=== PATIENT | female | born 1990 | race African-American/Black ===

== ENCOUNTER 2018-10-05 04:24 | Emergency (ER) | payer OTHER ==
[~2018-10-05] VITALS: Ht 160 cm; Wt 90.9 kg
[2018-10-05 05:11] LABS: APPEARANCE,URINE CLOUDY (CLEAR); BILIRUBIN,URINE NEGATIVE (NEGATIVE); GLUCOSE, URINE (UA) NEGATIVE (NEGATIVE); KETONES,URINE NEGATIVE (NEGATIVE); LEUKOCYTE ESTERASE ,URINE NEGATIVE (NEGATIVE); NITRATE,URINE NEGATIVE (NEGATIVE); OCCULT BLOOD,URINE NEGATIVE (NEGATIVE); PROTEIN,URINE NEGATIVE (NEGATIVE); UROBILINOGEN,URINE 0.2 mg/dL (<=1.0)
[2018-10-05 05:15] LABS: AMPHET/METH SCREEN,URINE POSITIVE (NEGATIVE); BARBITURATE SCREEN, URINE NEGATIVE (NEGATIVE); BENZODIAZEPINES SCREEN,URINE NEGATIVE (NEGATIVE); CANNABINOID SCREEN,URINE POSITIVE (NEGATIVE); COCAINE SCREEN,URINE NEGATIVE (NEGATIVE); METHADONE SCREEN, URINE NEGATIVE (NEGATIVE); OPIATE SCREEN,URINE NEGATIVE (NEGATIVE)
[2018-10-05 05:16] LABS: PHENCYCLIDINE SCREEN,URINE NEGATIVE (NEGATIVE)
[2018-10-05] MEDS ORDERED: SODIUM CHLORIDE 0.9% 1,000 ML IV ONE (05:18)
[2018-10-05] MEDS: ONDANSETRON HCL 4 MG/2 ML VIAL IVP ONE ×2 (05:22→05:27)
[2018-10-05 05:25] LABS: BASOPHILS % (AUTO) 0.4 % (0.0-2.0); EOSINOPHILS % (AUTO) 4.6 % (1.0-6.0); HEMATOCRIT 33.3 % (36-46); HEMOGLOBIN 11.1 g/dL (12.0-16.0); LYMPHOCYTES % (AUTO) 25.9 % (22.0-44.0); MEAN CORPUSCULAR HEMOGLOBIN 26.6 pg (26.0-34.0); MEAN CORPUSCULAR HGB CONC 33.3 G/dL (31.0-37.0); MEAN CORPUSCULAR VOLUME 80 fL (80-100); MONOCYTES # (AUTO) 0.6 K/uL (0.1-1.0); MONOCYTES % (AUTO) 8.5 % (2.0-9.0); NEUTROPHILS # (AUTO) 4.6 K/uL (1.8-7.7); NEUTROPHILS % (AUTO) 60.6 % (40.0-70.0); PLATELET COUNT (AUTO) 268 K/uL (150-450); RED BLOOD CELL COUNT(AUTO) 4.16 MIL/uL (4.00-5.20); RED CELL DISTRIBUTION WIDTH 14.3 % (11.5-14.5)
[2018-10-05 05:31] LABS: ANION GAP 8 mmol/L (8-16); CARBON DIOXIDE 25 mmol/L (22-29); CHLORIDE 102 mmol/L (98-107); CREATININE 0.76 mg/dL (0.60-1.30); GLOMERULAR FILTR. RATE CALC > 60 mL/min (>60); GLUCOSE,RANDOM 88 mg/dL (70-110); POTASSIUM 3.6 mmol/L (3.5-5.1); SODIUM SERUM 135 mmol/L (136-145); UREA NITROGEN, BLOOD 7 mg/dL (7-18)
[2018-10-05 05:59] LABS: ALANINE AMINOTRANSFERASE 18 U/L (12-78); ALBUMIN 2.8 g/dL (3.4-5.0); ALKALINE PHOSPHATASE 60 U/L (46-116); ASPARTATE AMINOTRANSFERASE 15 U/L (15-37); BILIRUBIN,TOTAL 0.2 mg/dL (0.1-1.0); HCG,QUANTITATIVE 10970 mIU/mL (0-6); LIPASE 147 U/L (73-393); TOTAL PROTEIN, SERUM 7.1 g/dL (6.4-8.2)
[2018-10-05 06:55] VITALS: BP 137/78
== END 2018-10-05 07:04 | disposition home or self-care (01) ==
LOC: EMS 04:24
DX: O99.612 Diseases of the digestive system complicating pregnancy, second trimester (principal); K52.9 Noninfective gastroenteritis and colitis, unspecified; O99.332 Smoking (tobacco) complicating pregnancy, second trimester; O26.892 Other specified pregnancy related conditions, second trimester; F12.90 Cannabis use, unspecified, uncomplicated; Z3A.16 16 weeks gestation of pregnancy
CPT/HCPCS: 36415; 76805; 80053; 80307; 81003; 83690; 84702; 85025; 96374; 99284; 99406; J2405; J7030

== ENCOUNTER 2021-10-19 16:20 | Emergency (ER) | payer MEDICAID, OTHER ==
[~2021-10-19] VITALS: Ht 160 cm; Wt 95.5 kg
[2021-10-19 17:10] LABS: APPEARANCE,URINE TURBID (CLEAR); BILIRUBIN,URINE NEGATIVE (NEGATIVE); GLUCOSE, URINE (UA) NEGATIVE (NEGATIVE); KETONES,URINE NEGATIVE (NEGATIVE); LEUKOCYTE ESTERASE ,URINE SMALL (NEGATIVE); NITRATE,URINE NEGATIVE (NEGATIVE); OCCULT BLOOD,URINE LARGE (NEGATIVE); PH,URINE 6.5 (5.0-8.0); PROTEIN,URINE >600,SEE CONFIRM mg/dL (NEGATIVE); SPECIFIC GRAVITIY, URINE 1.033 (1.003-1.030); UROBILINOGEN,URINE <=1.0 mg/dL (<=1.0)
[2021-10-19 17:19] LABS: BACTERIA,URINE Rare /HPF (None Seen); RBC,URINE Full Field /HPF (0-2); SQUAMOUS EPITHELIAL CELL,UR Few /LPF (None Seen); WBC,URINE 0-2 /HPF (0-5)
[2021-10-19 17:23] LABS: SULFOSALICYLIC ACID,URINE 4+ (Negative)
[2021-10-19] MEDS ORDERED: HydrALAZINE HCL 20 MG/ML VIAL IVP ONE ×2 (17:45→18:15)
[2021-10-19 18:06] LABS: BASOPHILS % (AUTO) 0.6 % (0.0-2.0); EOSINOPHILS % (AUTO) 0.5 % (1.0-6.0); HEMATOCRIT 38.4 % (36-46); HEMOGLOBIN 12.9 g/dL (12.0-16.0); LYMPHOCYTES # (AUTO) 1.6 K/uL (1.0-4.8); LYMPHOCYTES % (AUTO) 23.4 % (22.0-44.0); MEAN CORPUSCULAR HGB CONC 33.5 G/dL (31.0-37.0); MEAN CORPUSCULAR VOLUME 81 fL (80-100); MONOCYTES # (AUTO) 0.6 K/uL (0.1-1.0); MONOCYTES % (AUTO) 8.9 % (2.0-9.0); NEUTROPHILS # (AUTO) 4.7 K/uL (1.8-7.7); NEUTROPHILS % (AUTO) 66.6 % (40.0-70.0); PLATELET COUNT (AUTO) 134 K/uL (150-450); RED BLOOD CELL COUNT(AUTO) 4.77 MIL/uL (4.00-5.20); RED CELL DISTRIBUTION WIDTH 15.1 % (11.5-14.5)
[2021-10-19 18:09] LABS: ANION GAP 3 mmol/L (8-16); CARBON DIOXIDE 28 mmol/L (22-29); CHLORIDE 103 mmol/L (98-107); CREATININE 1.06 mg/dL (0.60-1.30); GLOMERULAR FILTR. RATE CALC > 60 mL/min (>60); GLUCOSE,RANDOM 91 mg/dL (70-110); POTASSIUM 4.7 mmol/L (3.5-5.1); SODIUM SERUM 134 mmol/L (136-145); UREA NITROGEN, BLOOD 18 mg/dL (7-18)
[2021-10-19] MEDS ORDERED: LABETALOL HCL 5 MG/ML 20 ML VIAL IVP ONE ×2 (18:30→19:15)
[2021-10-19 18:36] LABS: ALANINE AMINOTRANSFERASE 17 U/L (12-78); ALKALINE PHOSPHATASE 122 U/L (46-116); ASPARTATE AMINOTRANSFERASE 25 U/L (15-37); BILIRUBIN,TOTAL 0.3 mg/dL (0.1-1.0); HCG,QUANTITATIVE 21803 mIU/mL (0-6); LACTATE DEHYDROGENASE 321 U/L (81-234); TOTAL PROTEIN, SERUM 6.2 g/dL (6.4-8.2)
[2021-10-19 18:41] LABS: B-TYPE NATRIURETIC PEPTIDE 69 pg/mL (0-100)
[2021-10-19 18:46] LABS: URIC ACID 6.3 mg/dL (2.6-7.2)
[2021-10-19 19:16] VITALS: BP 192/122
== END 2021-10-19 19:20 | disposition short-term general hospital (02) ==
LOC: EMS 16:33
DX: O14.92 Unspecified pre-eclampsia, second trimester (principal); Z3A.26 26 weeks gestation of pregnancy; F12.90 Cannabis use, unspecified, uncomplicated; F17.210 Nicotine dependence, cigarettes, uncomplicated; Z79.899 Other long term (current) drug therapy
CPT/HCPCS: 36415; 76805; 76817; 80053; 81001; 83615; 83880; 84484; 84550; 84702; 84703; 85025; 93005; 96374; 96375; 96376; 99291; G0480; J0360; J3490; 81002

== ENCOUNTER 2023-01-18 18:42 | Emergency (ER) | payer MEDICAID, OTHER ==
[~2023-01-18] VITALS: Ht 162.6 cm; Wt 108.2 kg
[2023-01-18] MEDS ORDERED: AMLO10TA55 PO (18:53)
[2023-01-18] MEDS ORDERED: CHLO25TA3 PO (18:53)
[2023-01-18] MEDS ORDERED: CARV25TA32 PO (18:53)
[2023-01-18] MEDS ORDERED: ISOS20TA85 PO (18:54)
[2023-01-18 18:57] VITALS: BP 138/77; PULSE 84; RESP 18; TEMP 98.1
[2023-01-18] MEDS ORDERED: LIDOCAINE 1% 10 ML VIAL SQ ONE (19:00)
[2023-01-18] MEDS ORDERED: CEPH-558 PO (19:48)
[2023-01-18] MEDS ORDERED: IBUP-1554 PO (19:48)
[2023-01-18] MEDS ORDERED: DOXY-354 PO (19:48)
== END 2023-01-18 19:51 | disposition home or self-care (01) ==
LOC: EMS 18:42
DX: L02.212 Cutaneous abscess of back [any part, except buttock and flank] (principal); I10 Essential (primary) hypertension; F17.210 Nicotine dependence, cigarettes, uncomplicated; F12.90 Cannabis use, unspecified, uncomplicated; Z98.51 Tubal ligation status; Z98.890 Other specified postprocedural states
CPT/HCPCS: 99283; 10060; J3490

== ENCOUNTER 2023-01-20 15:10 | Emergency (ER) | payer OTHER ==
[~2023-01-20] VITALS: Ht 162.6 cm; Wt 108.2 kg
[~2023-01-20 15:10] MED LIST: AMLO10TA55 PO; CARV25TA32 PO; CEPH-558 PO; CHLO25TA3 PO; DOXY-354 PO; IBUP-1554 PO; ISOS20TA85 PO
[2023-01-20 15:25] VITALS: BP 119/73; PULSE 80; RESP 18; TEMP 97.8
== END 2023-01-20 16:52 | disposition left against medical advice (07) ==
LOC: EMS 15:30
DX: Z53.21 Procedure and treatment not carried out due to patient leaving prior to being seen by health care provider (principal)
CPT/HCPCS: 99281; Z7502

== ENCOUNTER 2023-01-22 14:35 | Emergency (ER) | payer OTHER ==
[~2023-01-22] VITALS: Ht 162.6 cm; Wt 104.5 kg
[2023-01-22 16:18] VITALS: BP 134/89; PULSE 91; RESP 16; TEMP 98.6
== END 2023-01-22 16:50 | disposition home or self-care (01) ==
LOC: EMS 14:37
DX: S30.91XD Unspecified superficial injury of lower back and pelvis, subsequent encounter (principal); L02.212 Cutaneous abscess of back [any part, except buttock and flank]; I10 Essential (primary) hypertension; F17.210 Nicotine dependence, cigarettes, uncomplicated; F12.90 Cannabis use, unspecified, uncomplicated; Z98.51 Tubal ligation status; Z98.890 Other specified postprocedural states; X58.XXXD Exposure to other specified factors, subsequent encounter
CPT/HCPCS: 99282; Z7502

== ENCOUNTER 2024-06-22 11:17 | Emergency (ER) | payer OTHER ==
[~2024-06-22] VITALS: Ht 160 cm; Wt 118.2 kg
[2024-06-22] MEDS ORDERED: SODIUM CHLORIDE 0.9% 100 ML ONE (11:57)
[2024-06-22] MEDS ORDERED: IOHEXOL 350 MG/ML 100 ML VIAL ONE (11:57)
[2024-06-22 12:10] LABS: BASOPHILS % (AUTO) 0.4 % (0.0-2.0); EOSINOPHILS % (AUTO) 2.1 % (1.0-6.0); HEMATOCRIT 40.5 % (36-46); LYMPHOCYTES # (AUTO) 2.2 K/uL (1.0-4.8); LYMPHOCYTES % (AUTO) 18.5 % (22.0-44.0); MEAN CORPUSCULAR HEMOGLOBIN 25.8 pg (26.0-34.0); MEAN CORPUSCULAR HGB CONC 32.1 G/dL (31.0-37.0); MEAN CORPUSCULAR VOLUME 80 fL (80-100); NEUTROPHILS # (AUTO) 8.5 K/uL (1.8-7.7); PLATELET COUNT (AUTO) 317 K/uL (150-450); RED BLOOD CELL COUNT(AUTO) 5.05 MIL/uL (4.00-5.20); RED CELL DISTRIBUTION WIDTH 14.5 % (11.5-14.5)
[2024-06-22 12:20] LABS: ANION GAP 8 mmol/L (8-16); CALCIUM, TOTAL 9.2 mg/dL (8.8-10.5); CARBON DIOXIDE 29 mmol/L (22-29); CHLORIDE 101 mmol/L (98-107); CREATININE 0.67 mg/dL (0.60-1.30); GLOMERULAR FILTR. RATE CALC > 60 mL/min (>60); GLUCOSE,RANDOM 129 mg/dL (70-110); POTASSIUM 3.5 mmol/L (3.5-5.1); SODIUM SERUM 138 mmol/L (136-145); UREA NITROGEN, BLOOD 4 mg/dL (7-18)
[2024-06-22] MEDS: KETOROLAC TROMETHAMINE 30 MG/ML VIAL IVP ONE (12:30)
[2024-06-22] MEDS: DEXAMETHASONE SOD PHOS 4 MG/ML 5 ML VIAL IVP ONE (12:30)
[2024-06-22] MEDS: CLINDAMYCIN 600 MG/D5% WATER 50 ML IV ONE (14:20)
[2024-06-22 14:34] VITALS: BP 184/125; PULSE 89; RESP 18; TEMP 98.5; O2SAT 100
[2024-06-22] MEDS ORDERED: CLIN-26 PO (14:43)
== END 2024-06-22 14:50 | disposition left against medical advice (07) ==
LOC: EMS 11:17
DX: J36 Peritonsillar abscess (principal); R05.8 Other specified cough; R11.0 Nausea; I10 Essential (primary) hypertension; F12.90 Cannabis use, unspecified, uncomplicated; F17.210 Nicotine dependence, cigarettes, uncomplicated; Z98.51 Tubal ligation status; Z98.890 Other specified postprocedural states
CPT/HCPCS: 99285; 96365; 70491; 96375; 80048; 85025; 36415; Q9967; J3490; J1100; J1885; J7050